=== PATIENT | male | born 1965 | race Caucasian/White ===

== ENCOUNTER 2018-06-15 11:58 | Outpatient (CLI) | payer BC ==
--- NOTE | 2018-06-15 13:09 | ULT ---
TESTICULAR ULTRASOUND: HISTORY: Testicular pain. FINDINGS: Multiple longitudinal and transverse images of the scrotum was obtained using a Multi[employer] linear ray transducer. Real-time, color flow and spectral waveform Doppler analysis demonstrates the left testicle to be of normal contour, axis, and size measuring 4.7 x 2.1 x 3.0 cm. No evidence of left te sticular masses or lesions seen. The right testicle is significantly smaller measuring 2.7 x 1.5 x 2.3 cm. There is an intraparenchyma l right testicular cyst measuring 1.1 x 1.6 cm. No evidence of testicular torsion seen. A small left-sided hydrocele is present. The right and left epididymis are unremarkable. IMPRESSION: Atrophied right testicle with intraparenchymal testicular cyst. Transcribed Date/Time: 06/15/2018 1:15 PM
== END 2018-06-15 11:59 | disposition home or self-care (01) ==
LOC: BICULT 11:58
PROVIDERS: ATTEND Nurse Practitioner Family
DX: N50.819 Testicular pain, unspecified (principal); N44.2 Benign cyst of testis; N50.0 Atrophy of testis
CPT/HCPCS: 76870; 93976

== ENCOUNTER 2023-11-01 14:20 | Outpatient (CLI) | payer OTHER | END 2023-11-01 14:21 | disposition home or self-care (01) | LOC: CT 14:20 | PROVIDERS: ATTEND Orthopaedic Surgery | DX: M17.11 Unilateral primary osteoarthritis, right knee (principal) ==

== ENCOUNTER 2023-11-07 05:35 | Observation (INO) | payer BC ==
[2023-10-31 09:22] VITALS: BMI 34.4
[2023-11-07] MEDS ORDERED: Vancomycin (BATCH) 1.5 GM/300 ML BAG ONE (06:12)
[2023-11-07] MEDS ORDERED: Sodium Chloride 0.9% 100 ML ONE ×2 (06:12→06:59)
[2023-11-07] MEDS ORDERED: Tranexamic Acid 1,000 MG/10 ML VIAL ONE (06:12)
[2023-11-07] MEDS ORDERED: EPINEPHrine 1 MG/ML VIAL ONE (06:27)
[2023-11-07] MEDS ORDERED: Bupivacaine 0.25% HCL 30 ML VIAL ONE (06:27)
[2023-11-07] MEDS ORDERED: fentaNYL 50 mcg/mL 1 mL Vial ONE ×4 (06:44→10:47)
[2023-11-07] MEDS ORDERED: Midazolam HCl 2 mg/2 ml Vial ONE (06:45)
[2023-11-07] MEDS ORDERED: Bupivacaine PF 0.5% 30 ML VIAL ONE (06:45)
[2023-11-07] MEDS ORDERED: Lidocaine 1% (PF) 30 ML VIAL ONE (06:45)
[2023-11-07] MEDS ORDERED: CEFAZOLIN 2 GM VIAL ONE (06:59)
[2023-11-07] MEDS ORDERED: fentaNYL PF 100 MCG/2 ML SYRINGE ONE (07:07)
[2023-11-07] MEDS ORDERED: PROPOFOL 20 ML ONE (07:07)
[2023-11-07] MEDS ORDERED: Lidocaine 1% PF 5 ML VIAL ONE (07:08)
[2023-11-07] MEDS ORDERED: Ondansetron PF 4 MG/2 ML Vial ONE (07:08)
[2023-11-07] MEDS ORDERED: Dexamethasone 4 mg/ml Vial ONE (07:08)
[2023-11-07] MEDS ORDERED: ePHEDrine Sulfate 50 MG/10 ML VIAL ONE (08:12)
[2023-11-07] MEDS ORDERED: Zolpidem Tartrate 5 MG TAB PO PRN ×2 (09:26→09:45)
[2023-11-07] MEDS ORDERED: diphenhydrAMINE 25 MG CAP PO PRN (09:26)
[2023-11-07] MEDS ORDERED: Acetaminophen 325 MG TAB PO PRN (09:26)
[2023-11-07] MEDS ORDERED: Ondansetron PF 4 MG/2 ML Vial IVP PRN ×2 (09:26→09:45)
[2023-11-07] MEDS ORDERED: Promethazine HCl 25 MG/ML VIAL IM PRN ×2 (09:26→09:45)
[2023-11-07] MEDS ORDERED: fentaNYL 50 mcg/mL 1 mL Vial SLOW IVP PRN (09:44)
[2023-11-07] MEDS ORDERED: HYDROcodone/Acetaminophen 10/325 mg Tablet PO PRN (09:45)
[2023-11-07] MEDS ORDERED: traMADol HCl 50 MG TAB PO PRN ×2 (09:45)
[2023-11-07] MEDS ORDERED: Ropivacaine 0.2% 550 ML 550 ML NERVE BLCK SCH (09:45)
[2023-11-07] MEDS ORDERED: hydrALAZINE 20 MG/ML VIAL ONE (10:18)
[2023-11-07] MEDS ORDERED: HYDROmorphone 0.5 MG/0.5 ML SYRINGE ONE (10:30)
[2023-11-07] MEDS: Losartan 25 MG TAB PO SCH (12:52)
[2023-11-07] MEDS: Ketorolac Tromethamine 30 MG (1 mL) VIAL IVP SCH (12:52)
[2023-11-07] MEDS: Aspirin 81 mg Enteric Coated Tablet PO SCH ×2 (12:56→20:07)
[2023-11-07] MEDS: Sodium Chloride 0.9% 1,000 ML IV SCH (12:59)
[2023-11-07] MEDS: CEFAZOLIN 2 GM in Sodium Chloride 0.9% 100 ML IVPB SCH (14:29)
[2023-11-07] MEDS: Amlodipine 5 MG TAB PO SCH (14:29)
[2023-11-07] MEDS: hydrALAZINE 20 MG/ML VIAL SLOW IVP PRN (20:07)
[2023-11-07] MEDS: CEFAZOLIN 2 GM VIAL ONE (23:24)
[2023-11-08 06:47] LABS: #Basophils 0.04 10x3/uL (0.0-0.2); %Basophils 0.3 % (0.0-1.0); %Eosinophils 0.4 % (0.0-10.0); %Lymphocytes 15.5 % (21.0-51.0); %Monocytes 10.7 % (0.0-10.0); %Neutrophils 72.6 % (42.0-75.0); Hematocrit 32.4 % (42.0-52.0); Hemoglobin 11.5 g/dL (14.0-18.0); Mean Corpuscular HGB CONC 35.5 g/dL (32.0-36.0); Mean Corpuscular Hemoglobin 32.5 pg (27.0-31.0); Mean Corpuscular Volume 91.5 fL (78.0-98.0); Mean Platelet Volume 10.1 fL (7.4-10.4); Platelet Count 214 10x3/uL (130-400); RBC Distribution Width 14.4 % (11.5-14.5); Red Blood Cell (RBC) Count 3.54 mill/uL (4.70-6.10)
[2023-11-08 06:49] LABS: Hematocrit 32.6 % (42.0-52.0); Hemoglobin 11.5 g/dL (14.0-18.0); Mean Corpuscular HGB CONC 35.3 g/dL (32.0-36.0); Mean Corpuscular Hemoglobin 31.5 pg (27.0-31.0); Mean Corpuscular Volume 89.3 fL (78.0-98.0); Mean Platelet Volume 10.2 fL (7.4-10.4); Platelet Count 212 10x3/uL (130-400); RBC Distribution Width 14.5 % (11.5-14.5); Red Blood Cell (RBC) Count 3.65 mill/uL (4.70-6.10)
[2023-11-08] MEDS: HYDROcodone/Acetaminophen 10/325 mg Tablet PO PRN (06:50)
[2023-11-08 08:01] LABS: ALT (SGPT) 16 U/L (8-55); AST (SGOT) 15 U/L (5-34); Alkaline Phosphatase 67 U/L (40-110); Anion Gap 13 mmol/L (10-20); BUN (Urea Nitrogen) 13 mg/dL (8.4-25.7); Bilirubin, Total 0.5 mg/dL (0.2-1.2); Calc. Creatinine Clearance 124 mL/min (70-130); Calcium 8.3 mg/dL (7.8-10.44); Carbon Dioxide 23 mmol/L (22-29); Chloride 107 mmol/L (98-107); Estimated GFR 87; Globulin 2.8 g/dL (2.4-3.5); Glucose 107 mg/dL (70-105); Protein, Total 5.8 g/dL (6.0-8.3); Sodium 140 mmol/L (136-145)
[2023-11-08 08:11] VITALS: BP 136/73
[2023-11-08] MEDS: Ferrous Gluconate 324 MG TAB PO SCH (08:51)
[2023-11-08] MEDS: Multivitamin W/ Minerals 1 TAB PO SCH (08:52)
[2023-11-08] MEDS: Amlodipine 10 MG TAB PO SCH (08:52)
[2023-11-08] MEDS: Losartan 25 MG TAB PO SCH (08:53)
[2023-11-08] MEDS: Senokot S 8.6-50 MG TAB PO SCH (08:53)
[2023-11-08] MEDS: Fluticasone Propionate Nasal Spray 16 gm Bottle NASAL SCH (08:59)
[2023-11-08] MEDS ORDERED: Amlodipine 5 MG TAB PO SCH (09:00)
[2023-11-08 12:02] VITALS: TEMP 98.7
[2023-11-08] MEDS: Potassium Chloride 20 MEQ TAB PO SCH (14:39)
== END 2023-11-08 15:29 | disposition home or self-care (01) ==
LOC: SDC 05:35 → SURG A 11:26 → SDC 14:11
PROVIDERS: ADMIT Orthopaedic Surgery; ATTEND Orthopaedic Surgery
PROC: 0SRC0JZ Replacement of Right Knee Joint with Synthetic Substitute, Open Approach (ICD-10-PCS; principal; 2023-11-08)
DX: M17.11 Unilateral primary osteoarthritis, right knee (principal); I10 Essential (primary) hypertension; E66.9 Obesity, unspecified
CPT/HCPCS: 36415; 80053; 85027; 96365; 96366; 96375; 96376; A4306; C1713; C1776; C1889; G0378; J0171; J0360; J0665; J1100; J1170; J1885; J2001; J2250; J2405; J2704; J2795; J3010; J3370; J7030